=== PATIENT | male | born 2000 | race Caucasian/White ===

== ENCOUNTER 2018-10-02 22:49 | Emergency (ER) | payer SELFPAY ==
[~2018-10-02] VITALS: Ht 182.9 cm; Wt 54.5 kg
[2018-10-02 22:55] VITALS: BP 140/76
== END 2018-10-03 01:00 | disposition left against medical advice (07) ==
LOC: EMS 22:55
DX: R44.0 Auditory hallucinations (principal); F31.9 Bipolar disorder, unspecified; F12.90 Cannabis use, unspecified, uncomplicated; Z77.22 Contact with and (suspected) exposure to environmental tobacco smoke (acute) (chronic); Z53.21 Procedure and treatment not carried out due to patient leaving prior to being seen by health care provider

== ENCOUNTER 2022-03-02 16:08 | Inpatient (IN) | payer SELFPAY ==
[~2022-03-02] VITALS: Ht 180.3 cm; Wt 59.0 kg
[2022-03-02 16:59] LABS: BASOPHILS % (AUTO) 0.6 % (0.0-2.0); EOSINOPHILS % (AUTO) 0 % (1.0-6.0); HEMATOCRIT 44.6 % (41-53); HEMOGLOBIN 14.5 g/dL (13.5-17.5); LYMPHOCYTES # (AUTO) 0.6 K/uL (1.0-4.8); LYMPHOCYTES % (AUTO) 3.8 % (22.0-44.0); MEAN CORPUSCULAR HEMOGLOBIN 30.8 pg (26.0-34.0); MEAN CORPUSCULAR HGB CONC 32.5 G/dL (31.0-37.0); MEAN CORPUSCULAR VOLUME 95 fL (80-100); MONOCYTES # (AUTO) 0.6 K/uL (0.1-1.0); MONOCYTES % (AUTO) 4.3 % (2.0-9.0); NEUTROPHILS # (AUTO) 13.8 K/uL (1.8-7.7); PLATELET COUNT (AUTO) 388 K/uL (150-450); RED CELL DISTRIBUTION WIDTH 13.1 % (11.5-14.5)
[2022-03-02 17:00] LABS: COVID AG,FIA SOURCE NASOPHARYNGEAL
[2022-03-02 17:02] LABS: NEUTROPHILS % (AUTO) 91.3 % (40.0-70.0)
[2022-03-02 17:04] LABS: ANION GAP 5 mmol/L (8-16); CALCIUM, TOTAL 9.5 mg/dL (8.8-10.5); CARBON DIOXIDE 30 mmol/L (22-29); CHLORIDE 99 mmol/L (98-107); CREATININE 0.87 mg/dL (0.60-1.30); GLUCOSE,RANDOM 105 mg/dL (70-110); POTASSIUM 3.9 mmol/L (3.5-5.1); SODIUM SERUM 134 mmol/L (136-145); UREA NITROGEN, BLOOD 16 mg/dL (7-18)
[2022-03-02 17:10] LABS: ALANINE AMINOTRANSFERASE 45 U/L (12-78); ALBUMIN 4.5 g/dL (3.4-5.0); ALKALINE PHOSPHATASE 63 U/L (46-116); ASPARTATE AMINOTRANSFERASE 32 U/L (15-37); BILIRUBIN,TOTAL 0.4 mg/dL (0.1-1.0); GLOMERULAR FILTR. RATE CALC > 60 mL/min (>60); LIPASE 72 U/L (73-393); TOTAL PROTEIN, SERUM 8.5 g/dL (6.4-8.2)
[2022-03-02 17:22] LABS: INFLUENZA TYPE A NEGATIVE FOR TYPE A (NEGATIVE); INFLUENZA TYPE B NEGATIVE FOR TYPE B (NEGATIVE)
[2022-03-02] MEDS ORDERED: ZOLPIDEM TARTRATE 10 MG TABLET PO PRN (22:00)
[2022-03-02] MEDS ORDERED: HALOPERIDOL 5 MG TABLET PO PRN (22:00)
[2022-03-02] MEDS ORDERED: LORazepam 2 MG TABLET PO PRN (22:00)
[2022-03-03] MEDS ORDERED: ONDANSETRON HCL 4 MG TABLET PO ONE (01:15)
[2022-03-03 03:05] VITALS: BP 114/70
[2022-03-03] MEDS ORDERED: ALBUTEROL SULFATE HFA 90 MCG/PUFF 8 GM INHALER IH PRN (05:45)
[2022-03-03] MEDS ORDERED: CloNIDine HCL 0.1 MG TABLET PO PRN (05:45)
[2022-03-03] MEDS ORDERED: MAG HYDROX/AL HYDROX/SIMETH ES 30 ML SUSPENSION UDCUP PO PRN (05:45)
[2022-03-03] MEDS ORDERED: OMEPRAZOLE 20 MG CAPSULE PO PRN (05:45)
[2022-03-03] MEDS ORDERED: IBUPROFEN 600 MG TABLET PO PRN (05:45)
[2022-03-03] MEDS ORDERED: MAGNESIUM HYDROXIDE SUSPENSION 30 ML UDCUP PO PRN (05:45)
[2022-03-03] MEDS ORDERED: BACITRACIN 28 GM OINTMENT TP PRN (05:45)
[2022-03-03] MEDS ORDERED: BENZOCAINE/MENTHOL LOZENGE PO PRN (05:45)
[2022-03-03] MEDS ORDERED: ONDANSETRON HCL 4 MG TABLET PO PRN (05:45)
[2022-03-03] MEDS ORDERED: DOCUSATE SODIUM 100 MG CAPSULE PO PRN (05:45)
[2022-03-03] MEDS ORDERED: PETROLATUM,WHITE 28 GM JELLY TP PRN (05:45)
[2022-03-03] MEDS ORDERED: ACETAMINOPHEN 325 MG TABLET PO PRN (05:45)
[2022-03-03] MEDS ORDERED: LOPERAMIDE HCL 2 MG CAPSULE PO PRN (05:45)
[2022-03-03 08:24] VITALS: BP 106/66
[2022-03-03 20:17] VITALS: BP 109/68
[2022-03-04] MEDS: DIVALPROEX SODIUM 500 MG DR TABLET PO SCH ×2 (08:23→20:11)
[2022-03-04] MEDS: RisperiDONE 2 MG TABLET PO SCH ×2 (08:24→20:11)
[2022-03-04 08:54] VITALS: BP 124/70
[2022-03-04 21:37] VITALS: BP 106/63
[2022-03-05 08:06] VITALS: BP 120/70
[2022-03-05] MEDS: MULTIVITAMINS WITH MINERALS, THERAPEUTIC TABLET PO SCH (08:27)
[2022-03-05] MEDS: DIVALPROEX SODIUM 500 MG DR TABLET PO SCH ×2 (08:27→20:28)
[2022-03-05] MEDS: RisperiDONE 2 MG TABLET PO SCH ×2 (08:27→20:28)
[2022-03-05 20:16] VITALS: BP 111/74
[2022-03-06 08:25] VITALS: BP 106/69
[2022-03-06] MEDS: DIVALPROEX SODIUM 500 MG DR TABLET PO SCH ×2 (09:15→20:32)
[2022-03-06] MEDS: RisperiDONE 2 MG TABLET PO SCH ×2 (09:15→20:32)
[2022-03-06] MEDS: MULTIVITAMINS WITH MINERALS, THERAPEUTIC TABLET PO SCH (09:15)
[2022-03-06] MEDS: NICOTINE POLACRILEX 2 MG LOZENGE PO PRN (17:10)
[2022-03-06 20:16] VITALS: BP 100/60
[2022-03-07 08:22] LABS: GLUCOMETER DEV NAME(LOC) POC.BV
[2022-03-07 08:42] VITALS: BP 112/77
[2022-03-07] MEDS: DIVALPROEX SODIUM 500 MG DR TABLET PO SCH ×2 (08:58→20:30)
[2022-03-07] MEDS: RisperiDONE 2 MG TABLET PO SCH ×2 (08:58→20:30)
[2022-03-07] MEDS: MULTIVITAMINS WITH MINERALS, THERAPEUTIC TABLET PO SCH (08:58)
[2022-03-07] MEDS: NICOTINE POLACRILEX 2 MG LOZENGE PO PRN (14:55)
[2022-03-07 20:03] VITALS: BP 118/76
[2022-03-08 08:42] VITALS: BP 130/68
[2022-03-08] MEDS: RisperiDONE 2 MG TABLET PO SCH ×2 (09:01→20:32)
[2022-03-08] MEDS: DIVALPROEX SODIUM 500 MG DR TABLET PO SCH ×2 (09:01→20:32)
[2022-03-08] MEDS: MULTIVITAMINS WITH MINERALS, THERAPEUTIC TABLET PO SCH (09:01)
[2022-03-08 20:03] VITALS: BP 108/62
[2022-03-09] MEDS: NICOTINE POLACRILEX 2 MG LOZENGE PO PRN (01:40)
[2022-03-09 08:15] VITALS: BP 140/70
[2022-03-09] MEDS: DIVALPROEX SODIUM 500 MG DR TABLET PO SCH (09:22)
[2022-03-09] MEDS: MULTIVITAMINS WITH MINERALS, THERAPEUTIC TABLET PO SCH (09:22)
[2022-03-09] MEDS: RisperiDONE 2 MG TABLET PO SCH (09:22)
[2022-03-09] MEDS ORDERED: RISP2TAB86 PO (11:03)
[2022-03-09] MEDS ORDERED: DIVA-112 PO (11:03)
== END 2022-03-09 14:05 | disposition home or self-care (01) | DRG 885 ==
LOC: EMS 16:08 → B2S 22:00
PROVIDERS: ADMIT Psychiatry & Neurology Psychiatry; ATTEND Psychiatry & Neurology Psychiatry
DX: F20.9 Schizophrenia, unspecified (principal); F31.9 Bipolar disorder, unspecified; F41.9 Anxiety disorder, unspecified; G47.00 Insomnia, unspecified; D72.829 Elevated white blood cell count, unspecified; K59.00 Constipation, unspecified; F17.210 Nicotine dependence, cigarettes, uncomplicated; Z20.822 Contact with and (suspected) exposure to COVID-19; Z79.899 Other long term (current) drug therapy
CPT/HCPCS: 80053; 80164; 83690; 85025; 87804; 99285; G0480; Q0162; Q9967

== ENCOUNTER 2022-03-13 13:55 | Inpatient (IN) | payer MEDICAID ==
[~2022-03-13] VITALS: Ht 182.9 cm; Wt 68.3 kg
[~2022-03-13 13:55] MED LIST: DIVA-112 PO; RISP2TAB86 PO
[2022-03-13] MEDS ORDERED: HALOPERIDOL LACTATE 5 MG/ML VIAL IM ONE (14:30)
[2022-03-13] MEDS ORDERED: LORazepam 2 MG/ML VIAL IM ONE (14:30)
[2022-03-13] MEDS ORDERED: DiphenhydrAMINE HCL 50 MG/ML VIAL IM ONE (14:30)
[2022-03-13 15:41] LABS: BASOPHILS % (AUTO) 0.7 % (0.0-2.0); EOSINOPHILS % (AUTO) 1.2 % (1.0-6.0); HEMATOCRIT 29.5 % (41-53); HEMOGLOBIN 9.8 g/dL (13.5-17.5); LYMPHOCYTES % (AUTO) 12.5 % (22.0-44.0); MEAN CORPUSCULAR HEMOGLOBIN 31.4 pg (26.0-34.0); MEAN CORPUSCULAR HGB CONC 33.1 G/dL (31.0-37.0); MEAN CORPUSCULAR VOLUME 95 fL (80-100); MONOCYTES % (AUTO) 12.4 % (2.0-9.0); NEUTROPHILS % (AUTO) 73.2 % (40.0-70.0); PLATELET COUNT (AUTO) 372 K/uL (150-450); RED BLOOD CELL COUNT(AUTO) 3.11 MIL/uL (4.50-5.90); RED CELL DISTRIBUTION WIDTH 12.7 % (11.5-14.5)
[2022-03-13 15:56] LABS: ANION GAP 8 mmol/L (8-16); CALCIUM, TOTAL 8.7 mg/dL (8.8-10.5); CARBON DIOXIDE 28 mmol/L (22-29); CHLORIDE 108 mmol/L (98-107); CREATININE 0.92 mg/dL (0.60-1.30); GLOMERULAR FILTR. RATE CALC > 60 mL/min (>60); GLUCOSE,RANDOM 89 mg/dL (70-110); POTASSIUM 3.8 mmol/L (3.5-5.1); SODIUM SERUM 144 mmol/L (136-145); UREA NITROGEN, BLOOD 13 mg/dL (7-18)
[2022-03-13 16:01] LABS: ALANINE AMINOTRANSFERASE 30 U/L (12-78); ALBUMIN 3.4 g/dL (3.4-5.0); ALKALINE PHOSPHATASE 51 U/L (46-116); ASPARTATE AMINOTRANSFERASE 23 U/L (15-37); BILIRUBIN,TOTAL 0.2 mg/dL (0.1-1.0); TOTAL PROTEIN, SERUM 6.2 g/dL (6.4-8.2)
[2022-03-13] MEDS ORDERED: QUEtiapine FUMARATE 100 MG TABLET PO PRN (17:15)
[2022-03-13 21:56] LABS: COVID AG,FIA SOURCE NASOPHARYNGEAL
[2022-03-14] VITALS (8 sets, daily range): BP systolic 104–140; BP diastolic 56–97
[2022-03-14] MEDS ORDERED: CloNIDine HCL 0.1 MG TABLET PO PRN (06:00)
[2022-03-14] MEDS ORDERED: OMEPRAZOLE 20 MG CAPSULE PO PRN (06:00)
[2022-03-14] MEDS ORDERED: ACETAMINOPHEN 325 MG TABLET PO PRN (06:00)
[2022-03-14] MEDS ORDERED: PETROLATUM,WHITE 28 GM JELLY TP PRN (06:00)
[2022-03-14] MEDS ORDERED: MAGNESIUM HYDROXIDE SUSPENSION 30 ML UDCUP PO PRN (06:00)
[2022-03-14] MEDS ORDERED: ONDANSETRON HCL 4 MG TABLET PO PRN (06:00)
[2022-03-14] MEDS ORDERED: ALBUTEROL SULFATE HFA 90 MCG/PUFF 8 GM INHALER IH PRN (06:00)
[2022-03-14] MEDS ORDERED: BACITRACIN 28 GM OINTMENT TP PRN (06:00)
[2022-03-14] MEDS ORDERED: LOPERAMIDE HCL 2 MG CAPSULE PO PRN (06:00)
[2022-03-14] MEDS ORDERED: MAG HYDROX/AL HYDROX/SIMETH ES 30 ML SUSPENSION UDCUP PO PRN (06:00)
[2022-03-14] MEDS ORDERED: BENZOCAINE/MENTHOL LOZENGE PO PRN (06:00)
[2022-03-14] MEDS ORDERED: DOCUSATE SODIUM 100 MG CAPSULE PO PRN (06:00)
[2022-03-14] MEDS ORDERED: DiphenhydrAMINE HCL 50 MG/ML VIAL ONE (19:57)
[2022-03-14] MEDS ORDERED: LORazepam 2 MG/ML VIAL ONE (19:57)
[2022-03-14] MEDS ORDERED: HALOPERIDOL LACTATE 5 MG/ML VIAL ONE (19:57)
[2022-03-14] MEDS ORDERED: HALOPERIDOL LACTATE 5 MG/ML VIAL IM ONE (20:00)
[2022-03-14] MEDS ORDERED: LORazepam 2 MG/ML VIAL IM ONE (20:00)
[2022-03-14] MEDS ORDERED: DiphenhydrAMINE HCL 50 MG/ML VIAL IM ONE (20:00)
[2022-03-14] MEDS: DIVALPROEX SODIUM 500 MG DR TABLET PO SCH (20:07)
[2022-03-14] MEDS: RisperiDONE 3 MG TABLET PO SCH (20:07)
[2022-03-15 08:10] VITALS: BP 104/63
[2022-03-15] MEDS: RisperiDONE 3 MG TABLET PO SCH ×2 (08:14→20:36)
[2022-03-15] MEDS: DIVALPROEX SODIUM 500 MG DR TABLET PO SCH ×2 (08:14→20:35)
[2022-03-15 16:00] VITALS: BP 112/74
[2022-03-16 06:54] LABS: APPEARANCE,URINE HAZY (CLEAR); BILIRUBIN,URINE NEGATIVE (NEGATIVE); GLUCOSE, URINE (UA) NEGATIVE (NEGATIVE); KETONES,URINE NEGATIVE (NEGATIVE); LEUKOCYTE ESTERASE ,URINE NEGATIVE (NEGATIVE); NITRATE,URINE NEGATIVE (NEGATIVE); OCCULT BLOOD,URINE NEGATIVE (NEGATIVE); PH,URINE 7.5 (5.0-8.0); PROTEIN,URINE NEGATIVE (NEGATIVE); SPECIFIC GRAVITIY, URINE 1.014 (1.003-1.030); UROBILINOGEN,URINE <=1.0 mg/dL (<=1.0)
[2022-03-16 06:59] LABS: AMPHET/METH SCREEN,URINE NEGATIVE (NEGATIVE); BARBITURATE SCREEN, URINE NEGATIVE (NEGATIVE); BENZODIAZEPINES SCREEN,URINE NEGATIVE (NEGATIVE); CANNABINOID SCREEN,URINE POSITIVE (NEGATIVE); COCAINE SCREEN,URINE NEGATIVE (NEGATIVE); METHADONE SCREEN, URINE NEGATIVE (NEGATIVE); OPIATE SCREEN,URINE NEGATIVE (NEGATIVE); PHENCYCLIDINE SCREEN,URINE NEGATIVE (NEGATIVE)
[2022-03-16 08:10] VITALS: BP 110/64
[2022-03-16] MEDS: DIVALPROEX SODIUM 500 MG DR TABLET PO SCH ×2 (10:13→20:45)
[2022-03-16] MEDS: RisperiDONE 3 MG TABLET PO SCH ×2 (10:13→20:45)
[2022-03-16 16:06] VITALS: BP 117/66
[2022-03-17 08:07] VITALS: BP 148/75
[2022-03-17] MEDS: DIVALPROEX SODIUM 500 MG DR TABLET PO SCH ×2 (08:08→21:05)
[2022-03-17] MEDS: RisperiDONE 3 MG TABLET PO SCH ×2 (08:08→21:06)
[2022-03-17 16:02] VITALS: BP 100/60
[2022-03-17] MEDS: ZOLPIDEM TARTRATE 10 MG TABLET PO PRN (21:06)
[2022-03-18] MEDS: RisperiDONE 3 MG TABLET PO SCH ×2 (08:09→20:13)
[2022-03-18] MEDS: DIVALPROEX SODIUM 500 MG DR TABLET PO SCH ×2 (08:09→20:13)
[2022-03-18 08:56] VITALS: BP 133/77
[2022-03-18 16:14] VITALS: BP 103/62
[2022-03-18] MEDS: ZOLPIDEM TARTRATE 10 MG TABLET PO PRN (20:13)
[2022-03-19 08:10] VITALS: BP 103/78
[2022-03-19] MEDS: DIVALPROEX SODIUM 500 MG DR TABLET PO SCH ×2 (08:13→20:49)
[2022-03-19] MEDS: RisperiDONE 3 MG TABLET PO SCH ×2 (08:13→20:49)
[2022-03-19 09:38] LABS: COVID AG,FIA SOURCE NASAL SWAB
[2022-03-19 16:15] VITALS: BP 104/60
[2022-03-19] MEDS: ZOLPIDEM TARTRATE 10 MG TABLET PO PRN (20:49)
[2022-03-20 08:05] VITALS: BP 100/60
[2022-03-20] MEDS: RisperiDONE 3 MG TABLET PO SCH ×2 (08:08→20:11)
[2022-03-20] MEDS: DIVALPROEX SODIUM 500 MG DR TABLET PO SCH ×2 (08:08→20:11)
[2022-03-20 16:04] VITALS: BP 104/65
[2022-03-21 08:06] VITALS: BP 97/60
[2022-03-21] MEDS: RisperiDONE 3 MG TABLET PO SCH ×2 (08:39→20:03)
[2022-03-21] MEDS: DIVALPROEX SODIUM 500 MG DR TABLET PO SCH ×2 (08:39→20:03)
[2022-03-21 16:07] VITALS: BP 136/70
[2022-03-22 08:00] VITALS: BP 110/71
[2022-03-22] MEDS: RisperiDONE 3 MG TABLET PO SCH ×2 (10:51→20:26)
[2022-03-22] MEDS: DIVALPROEX SODIUM 500 MG DR TABLET PO SCH ×2 (10:51→20:25)
[2022-03-22 16:00] VITALS: BP 112/63
[2022-03-23] MEDS: DIVALPROEX SODIUM 500 MG DR TABLET PO SCH ×2 (08:18→20:22)
[2022-03-23] MEDS: RisperiDONE 3 MG TABLET PO SCH ×2 (08:18→20:22)
[2022-03-23 08:39] VITALS: BP 111/59
[2022-03-23 16:37] VITALS: BP 143/64
[2022-03-23] MEDS: ZOLPIDEM TARTRATE 10 MG TABLET PO PRN (21:06)
[2022-03-24] MEDS: DIVALPROEX SODIUM 500 MG DR TABLET PO SCH ×2 (07:55→20:24)
[2022-03-24] MEDS: RisperiDONE 3 MG TABLET PO SCH ×2 (07:55→20:24)
[2022-03-24 09:07] VITALS: BP 123/80
[2022-03-24 16:09] VITALS: BP 119/70
[2022-03-25] MEDS: DIVALPROEX SODIUM 500 MG DR TABLET PO SCH ×2 (08:08→20:17)
[2022-03-25] MEDS: RisperiDONE 3 MG TABLET PO SCH ×2 (08:08→20:16)
[2022-03-25 08:17] VITALS: BP 109/62
[2022-03-25 08:45] LABS: BASOPHILS % (AUTO) 1.2 % (0.0-2.0); EOSINOPHILS % (AUTO) 2.5 % (1.0-6.0); HEMATOCRIT 38.1 % (41-53); HEMOGLOBIN 12.5 g/dL (13.5-17.5); LYMPHOCYTES # (AUTO) 1.5 K/uL (1.0-4.8); MEAN CORPUSCULAR HEMOGLOBIN 31.9 pg (26.0-34.0); MEAN CORPUSCULAR HGB CONC 32.7 G/dL (31.0-37.0); MEAN CORPUSCULAR VOLUME 97 fL (80-100); MONOCYTES # (AUTO) 0.8 K/uL (0.1-1.0); MONOCYTES % (AUTO) 8.7 % (2.0-9.0); NEUTROPHILS # (AUTO) 6.3 K/uL (1.8-7.7); NEUTROPHILS % (AUTO) 70.6 % (40.0-70.0); PLATELET COUNT (AUTO) 356 K/uL (150-450); RED BLOOD CELL COUNT(AUTO) 3.91 MIL/uL (4.50-5.90); RED CELL DISTRIBUTION WIDTH 13.7 % (11.5-14.5)
[2022-03-25 16:00] VITALS: BP 109/71
[2022-03-25] MEDS: ZOLPIDEM TARTRATE 10 MG TABLET PO PRN (21:25)
[2022-03-26 07:59] LABS: COVID AG,FIA SOURCE NASAL SWAB
[2022-03-26 08:00] VITALS: BP 103/78
[2022-03-26] MEDS: DIVALPROEX SODIUM 500 MG DR TABLET PO SCH ×2 (08:34→20:45)
[2022-03-26] MEDS: RisperiDONE 3 MG TABLET PO SCH ×2 (08:34→20:45)
[2022-03-26 15:08] VITALS: BP 112/74
[2022-03-26] MEDS: IBUPROFEN 600 MG TABLET PO PRN (15:08)
[2022-03-26 16:08] VITALS: BP 106/78
[2022-03-26 16:33] VITALS: BP 106/77
[2022-03-26] MEDS: ZOLPIDEM TARTRATE 10 MG TABLET PO PRN (22:18)
[2022-03-27 00:40] VITALS: BP 122/69
[2022-03-27] MEDS: IBUPROFEN 600 MG TABLET PO PRN ×2 (00:40→08:55)
[2022-03-27 08:00] VITALS: BP 115/73
[2022-03-27 08:55] VITALS: BP 118/76
[2022-03-27] MEDS: RisperiDONE 3 MG TABLET PO SCH ×2 (08:55→20:56)
[2022-03-27] MEDS: DIVALPROEX SODIUM 500 MG DR TABLET PO SCH ×2 (08:55→20:55)
[2022-03-27 16:00] VITALS: BP 129/79
[2022-03-28] MEDS: DIVALPROEX SODIUM 500 MG DR TABLET PO SCH ×2 (08:45→20:17)
[2022-03-28] MEDS: RisperiDONE 3 MG TABLET PO SCH ×2 (08:45→20:17)
[2022-03-28 09:43] VITALS: BP 116/65
[2022-03-28 17:09] VITALS: BP 120/68
[2022-03-28 18:30] VITALS: BP 124/72
[2022-03-28] MEDS: IBUPROFEN 600 MG TABLET PO PRN (18:30)
[2022-03-29] MEDS: RisperiDONE 3 MG TABLET PO SCH ×2 (09:14→20:35)
[2022-03-29] MEDS: DIVALPROEX SODIUM 500 MG DR TABLET PO SCH ×2 (09:14→20:35)
[2022-03-29 09:33] VITALS: BP 132/88
[2022-03-29 16:39] VITALS: BP 11/67
[2022-03-30] MEDS: DIVALPROEX SODIUM 500 MG DR TABLET PO SCH (08:57)
[2022-03-30] MEDS: RisperiDONE 3 MG TABLET PO SCH (08:57)
[2022-03-30 09:04] VITALS: BP 147/97
[2022-03-30] MEDS ORDERED: RISP3TAB63 PO (10:28)
[2022-03-30] MEDS ORDERED: DIVA-112 PO (10:28)
== END 2022-03-30 14:30 | disposition home or self-care (01) | DRG 750 ==
LOC: EMS 13:59 → 3EC 03-14 01:09 → 3EI 03-25 12:51
PROVIDERS: ADMIT Psychiatry & Neurology Psychiatry; ATTEND Psychiatry & Neurology Psychiatry
DX: F25.9 Schizoaffective disorder, unspecified (principal); D64.9 Anemia, unspecified; F31.9 Bipolar disorder, unspecified; F41.9 Anxiety disorder, unspecified; G47.00 Insomnia, unspecified; Z20.822 Contact with and (suspected) exposure to COVID-19; K59.00 Constipation, unspecified; Z78.1 Physical restraint status; Z87.891 Personal history of nicotine dependence
CPT/HCPCS: 80053; 80164; 81003; 85025; 99285; G0480; J1200; J1630; J2060

== ENCOUNTER 2023-12-30 13:59 | Inpatient (IN) | payer OTHER, MEDICAID ==
[~2023-12-30] VITALS: Ht 177.8 cm; Wt 62.1 kg
[~2023-12-30 13:59] MED LIST changes: +RISP-32 PO; -RISP2TAB86 PO; +RISP3TAB77 PO
[2023-12-30] MEDS ORDERED: LORazepam 2 MG TABLET PO PRN (14:30)
[2023-12-30] MEDS ORDERED: HALOPERIDOL 5 MG TABLET PO PRN (14:30)
[2023-12-30] MEDS ORDERED: ZOLPIDEM TARTRATE 10 MG TABLET PO PRN (14:30)
[2023-12-30 17:15] VITALS: BP 116/57; PULSE 85; RESP 18; TEMP 98; O2SAT 98
[2023-12-30 21:29] VITALS: BP 120/58; PULSE 80; RESP 17; TEMP 98.4; O2SAT 99
[2023-12-31 08:14] VITALS: BP 137/83; PULSE 79; RESP 17; TEMP 98.1; O2SAT 100
[2023-12-31 08:50] LABS: BASOPHILS % (AUTO) 0.7 % (0.0-2.0); EOSINOPHILS % (AUTO) 2.4 % (1.0-6.0); HEMOGLOBIN 14.4 g/dL (13.5-17.5); LYMPHOCYTES # (AUTO) 1.6 K/uL (1.0-4.8); LYMPHOCYTES % (AUTO) 16.4 % (22.0-44.0); MEAN CORPUSCULAR HEMOGLOBIN 31.7 pg (26.0-34.0); MEAN CORPUSCULAR HGB CONC 32.7 G/dL (31.0-37.0); MEAN CORPUSCULAR VOLUME 97 fL (80-100); MONOCYTES # (AUTO) 0.5 K/uL (0.1-1.0); MONOCYTES % (AUTO) 5.7 % (2.0-9.0); NEUTROPHILS # (AUTO) 7.1 K/uL (1.8-7.7); NEUTROPHILS % (AUTO) 74.8 % (40.0-70.0); PLATELET COUNT (AUTO) 408 K/uL (150-450); RED BLOOD CELL COUNT(AUTO) 4.54 MIL/uL (4.50-5.90); RED CELL DISTRIBUTION WIDTH 13.1 % (11.5-14.5); WHITE BLOOD COUNT (AUTO) 9.5 K/uL (4.5-11.0)
[2023-12-31 09:17] LABS: ALANINE AMINOTRANSFERASE 78 U/L (12-78); ALBUMIN 3.5 g/dL (3.4-5.0); ALKALINE PHOSPHATASE 55 U/L (46-116); ANION GAP 6 mmol/L (8-16); ASPARTATE AMINOTRANSFERASE 48 U/L (15-37); BILIRUBIN,TOTAL 0.3 mg/dL (0.1-1.0); CALCIUM, TOTAL 8.6 mg/dL (8.8-10.5); CARBON DIOXIDE 29 mmol/L (22-29); CHLORIDE 104 mmol/L (98-107); CHOL/HDL RATIO 2.9 (4.2-7.3); CHOLESTEROL 158 mg/dL (131-200); CREATININE 0.94 mg/dL (0.60-1.30); FREE T4 (FREE THYROXINE) 0.93 ng/dL (0.76-1.46); GLOMERULAR FILTR. RATE CALC > 60 mL/min (>60); GLUCOSE,RANDOM 97 mg/dL (70-110); HDL CHOLESTEROL 54 mg/dL (40-60); LDL CHOL (CALC.) 72 mg/dL (0-130); POTASSIUM 3.7 mmol/L (3.5-5.1); SODIUM SERUM 139 mmol/L (136-145); THYROID STIMULATING HORMONE 0.92 uIU/mL (0.36-3.74); TOTAL PROTEIN, SERUM 7.3 g/dL (6.4-8.2); TRIGLYCERIDES 161 mg/dL (15-150); UREA NITROGEN, BLOOD 10 mg/dL (7-18)
[2023-12-31] MEDS ORDERED: MAG HYDROX/ALUMINUM HYD/SIMETH ES 30 ML SUSPENSION UDCUP PO PRN (12:45)
[2023-12-31] MEDS ORDERED: ALBUTEROL SULFATE HFA 90 MCG/PUFF 8 GM INHALER IH PRN (12:45)
[2023-12-31] MEDS ORDERED: CloNIDine HCL 0.1 MG TABLET PO PRN (12:45)
[2023-12-31] MEDS ORDERED: GuaiFENesin/D-METHORPHAN [SUGAR-FREE] 200-20MG/10 ML SYRUP UDCUP PO PRN (12:45)
[2023-12-31] MEDS ORDERED: MAGNESIUM HYDROXIDE SUSPENSION 30 ML UDCUP PO PRN (12:45)
[2023-12-31] MEDS ORDERED: IBUPROFEN 400 MG TABLET PO PRN (12:45)
[2023-12-31] MEDS ORDERED: PETROLATUM,WHITE 28 GM JELLY TP PRN (12:45)
[2023-12-31] MEDS ORDERED: ACETAMINOPHEN 325 MG TABLET PO PRN (12:45)
[2023-12-31] MEDS ORDERED: DOCUSATE SODIUM 100 MG CAPSULE PO PRN (12:45)
[2023-12-31] MEDS ORDERED: LOPERAMIDE HCL 2 MG CAPSULE PO PRN (12:45)
[2023-12-31] MEDS ORDERED: NICOTINE 14 MG/24 HOUR PATCH TD PRN (12:45)
[2023-12-31] MEDS ORDERED: ONDANSETRON 4 MG TABLET PO PRN (12:45)
[2023-12-31] MEDS: DIVALPROEX SODIUM 500 MG DR TABLET PO SCH (16:07)
[2023-12-31 20:10] VITALS: BP 117/70; PULSE 61; RESP 16; TEMP 96.9; O2SAT 100
[2023-12-31] MEDS: RisperiDONE 3 MG TABLET PO SCH (21:07)
[2024-01-01 08:13] VITALS: BP 120/73; PULSE 96; RESP 17; TEMP 97.1; O2SAT 98
[2024-01-01 09:20] LABS: CHOL/HDL RATIO 3.1 (4.2-7.3); THYROID STIMULATING HORMONE 0.9 uIU/mL (0.36-3.74)
[2024-01-01] MEDS ORDERED: DIVA-112 PO (12:24)
[2024-01-01] MEDS ORDERED: DiphenhydrAMINE HCL 50 MG/ML VIAL ONE (15:20)
[2024-01-01] MEDS: DiphenhydrAMINE HCL 50 MG/ML VIAL IM ONE (15:26)
== END 2024-01-01 15:30 | DRG 885 ==
LOC: B2S 14:23
PROVIDERS: ADMIT Psychiatry & Neurology Child & Adolescent Psychiatry; ATTEND Psychiatry & Neurology Child & Adolescent Psychiatry
PROC: GZ52ZZZ Individual Psychotherapy, Cognitive (ICD-10-PCS; principal; 2023-12-31)
PROC: GZ56ZZZ Individual Psychotherapy, Supportive (ICD-10-PCS; 2023-12-31)
DX: F25.0 Schizoaffective disorder, bipolar type (principal); I10 Essential (primary) hypertension; F41.9 Anxiety disorder, unspecified; G47.00 Insomnia, unspecified; F19.10 Other psychoactive substance abuse, uncomplicated
CPT/HCPCS: 80053; 80061; 83036; 84439; 84443; 85025; J1200